=== PATIENT | male | born 1930 | race Caucasian/White ===

== ENCOUNTER 2019-01-31 19:22 | Emergency (ER) | payer MEDICARE, OTHER ==
[~2019-01-31] VITALS: Ht 177.8 cm; Wt 81.7 kg
[~2019-01-31 19:22] MED LIST: AMLO10 PO; AMLO5; AMOX875 PO; Amoxicillin500 MG PO; BENADRYL25 MG PO; BUPR150ER PO; CARV6.25 PO; CEFD300 PO; CEPH500 PO; CHOL10002 PO; Cipro500 MG PO; DONE10 PO; FERR325 PO; FINA5 PO; FLUC150A PO; Istalol2.5 ML BOTHEYES; LORA1 PO; LOSA50 PO; LOSARTAN POTAS100 MG PO; ROSU10TA PO; TRAV.004OP BOTHEYES; Travatan Z5 ML BOTHEYES; XARELTO20 MG PO; ZIPR20 PO
[2019-01-31 19:52] LABS: BASOPHILS ABSOLUTE AUTO 0.05 K/mm3 (0.00-0.23); BASOPHILS PERCENT AUTO 1 % (0-2); EOSINOPHILS ABSOLUTE AUTO 0.09 K/mm3 (0.00-0.68); EOSINOPHILS PERCENT AUTO 1 % (0-6); Hematocrit 47.7 % (37.0-53.0); Hemoglobin 15.8 g/dL (13.5-17.5); IMMATURE GRAN ABSOLUTE AUTO 0.02 K/mm3 (0.00-0.10); IMMATURE GRAN PERCENT AUTO 0 % (0-1); LYMPHOCYTES ABSOLUTE AUTO 1.69 K/mm3 (0.84-5.20); LYMPHOCYTES PERCENT AUTO 24 % (21-46); MONOCYTES ABSOLUTE AUTO 0.39 K/mm3 (0.16-1.47); MONOCYTES PERCENT AUTO 6 % (4-13); Mean Corpuscular HGB 32.8 pg (26.0-34.0); Mean Corpuscular HGB Conc 33.1 g/dL (31.5-36.5); Mean Corpuscular Volume 99 fL (80-100); NEUTROPHILS ABSOLUTE AUTO 4.74 K/mm3 (1.96-9.15); NEUTROPHILS PERCENT AUTO 68 % (41-73); Platelet Count 121 K/mm3 (150-400); RDW Coefficient Variation 12.2 % (11.7-14.2); RDW Standard Deviation 44.6 fL (35.1-46.3); Red Blood Cell Count 4.82 M/mm3 (4.30-5.90); White Blood Cell Count 6.98 K/mm3 (4.00-11.30)
[2019-01-31 20:08] LABS: Alanine Aminotransfer (ALT/SGP 17 U/L (12-78); Albumin/Globulin Ratio 1.4 (0.8-1.8); Alk Phos 109 U/L (50-136); Anion Gap 5 mmol/L (6-16); Aspartate Aminotrans (AST/SGOT 17 U/L (12-37); Blood Urea Nitrogen 20 mg/dL (8-24); Bun/Creatinine Ratio 15.9 (12.0-20.0); CO2, Blood 26 mmol/L (21-32); Calcium, Blood 9.3 mg/dL (8.5-10.1); Chloride, Blood 110 mmol/L (98-108); Creatinine, Blood 1.26 mg/dL (0.60-1.20); Ethanol (Alcohol), Blood, Med <3 mg/dL; Globulin, Blood 2.8 g/dL (2.2-4.0); Glomerular Filtration Rate 57 (60-); Glucose, Blood 95 mg/dL (70-99); Sodium, Blood 141 mmol/L (136-145); Total Protein, Blood 6.8 g/dL (6.4-8.2)
[2019-01-31 20:13] LABS: Source, Urine Clean Catch
[2019-01-31 20:21] LABS: Bilirubin, Urine Neg (Neg); Blood, Urine 1+ (Neg); Glucose Qualitative, Urine Neg (Neg); Ketones, Urine 1+ (Neg); Leukocyte Esterase, Urine 1+ (Neg); Nitrite, Urine Neg (Neg); Protein, Urine 1+ (Neg); Urobilinogen, Urine 2+ (Normal); pH, Urine 6.5 (5.0-8.0)
[2019-01-31 20:28] LABS: Appearance, Urine Hazy (Clear); Bacteria Many /hpf; Color, Urine Yellow (P-Yellow); Red Blood Cells, Urine 0-2 /hpf (0-2); Squamous Epithelial Cells Few /hpf (Few); White Blood Cells, Urine 25-50 /hpf (0-5)
[2019-01-31] MEDS ORDERED: CEFP200 PO (20:38)
[2019-01-31] MEDS ORDERED: LOSA50 PO (20:38)
== END 2019-01-31 21:02 | disposition home or self-care (01) ==
LOC: ER 19:22
PROVIDERS: Emergency Medicine
DX: N39.0 Urinary tract infection, site not specified (principal); I10 Essential (primary) hypertension; Z86.73 Personal history of transient ischemic attack (TIA), and cerebral infarction without residual deficits; I48.91 Unspecified atrial fibrillation; F03.90 Unspecified dementia, unspecified severity, without behavioral disturbance, psychotic disturbance, mood disturbance, and anxiety; Z79.899 Other long term (current) drug therapy
CPT/HCPCS: 70450; 71045; 80053; 81001; 85025; 87077; 87086; 87186; 93005; 93010; 99285-25; A9270-GY; G0480

== ENCOUNTER 2019-12-30 14:41 | Emergency (ER) | payer MEDICARE, OTHER ==
[~2019-12-30] VITALS: Ht 177.8 cm; Wt 81.7 kg
[~2019-12-30 14:41] MED LIST changes: +CEFP200 PO
[2019-12-30 15:26] LABS: BASOPHILS ABSOLUTE AUTO 0.04 K/mm3 (0.00-0.23); BASOPHILS PERCENT AUTO 1 % (0-2); EOSINOPHILS ABSOLUTE AUTO 0.14 K/mm3 (0.00-0.68); EOSINOPHILS PERCENT AUTO 2 % (0-6); Hematocrit 48.6 % (37.0-53.0); Hemoglobin 15.8 g/dL (13.5-17.5); IMMATURE GRAN ABSOLUTE AUTO 0.01 K/mm3 (0.00-0.10); IMMATURE GRAN PERCENT AUTO 0 % (0-1); LYMPHOCYTES ABSOLUTE AUTO 1.49 K/mm3 (0.84-5.20); LYMPHOCYTES PERCENT AUTO 26 % (21-46); MONOCYTES ABSOLUTE AUTO 0.42 K/mm3 (0.16-1.47); MONOCYTES PERCENT AUTO 7 % (4-13); Mean Corpuscular HGB 31.7 pg (26.0-34.0); Mean Corpuscular HGB Conc 32.5 g/dL (31.5-36.5); Mean Corpuscular Volume 98 fL (80-100); Mean Platelet Volume 11.9 fL (9.1-12.4); NEUTROPHILS ABSOLUTE AUTO 3.74 K/mm3 (1.96-9.15); NEUTROPHILS PERCENT AUTO 64 % (41-73); Platelet Count 119 K/mm3 (150-400); RDW Coefficient Variation 12.6 % (11.7-14.2); RDW Standard Deviation 45.4 fL (35.1-46.3); Red Blood Cell Count 4.98 M/mm3 (4.30-5.90); White Blood Cell Count 5.84 K/mm3 (4.00-11.30)
[2019-12-30 15:49] LABS: Alanine Aminotransfer (ALT/SGP 19 U/L (12-78); Albumin, Blood 3.6 g/dL (3.4-5.0); Albumin/Globulin Ratio 1.2 (0.8-1.8); Alk Phos 96 U/L (50-136); Anion Gap 6 mmol/L (6-16); Aspartate Aminotrans (AST/SGOT 21 U/L (12-37); Bilirubin, Total 0.9 mg/dL (0.1-1.0); Blood Urea Nitrogen 28 mg/dL (8-24); Bun/Creatinine Ratio 20.3 (12.0-20.0); CO2, Blood 25 mmol/L (21-32); Calcium, Blood 8.8 mg/dL (8.5-10.1); Chloride, Blood 113 mmol/L (98-108); Creatinine, Blood 1.38 mg/dL (0.60-1.20); Globulin, Blood 3.1 g/dL (2.2-4.0); Glomerular Filtration Rate 52 (60-); Glucose, Blood 108 mg/dL (70-99); Potassium, Blood 4.5 mmol/L (3.5-5.5); Sodium, Blood 144 mmol/L (136-145); Total Protein, Blood 6.7 g/dL (6.4-8.2); Troponin I <0.015 ng/mL (0.000-0.040)
== END 2019-12-30 16:29 | disposition home or self-care (01) ==
LOC: ER 14:41
PROVIDERS: Physician Assistant
DX: R07.9 Chest pain, unspecified (principal); F03.90 Unspecified dementia, unspecified severity, without behavioral disturbance, psychotic disturbance, mood disturbance, and anxiety; Z79.2 Long term (current) use of antibiotics; Z79.899 Other long term (current) drug therapy; Z86.73 Personal history of transient ischemic attack (TIA), and cerebral infarction without residual deficits
CPT/HCPCS: 36415; 71045; 80053; 84484; 85025; 93005; 93010; 99285-25

== ENCOUNTER 2020-06-11 19:11 | Observation (INO) | payer MEDICARE, OTHER ==
[~2020-06-11] VITALS: Ht 177.8 cm; Wt 81.7 kg
[2020-06-11 20:12] LABS: BASOPHILS ABSOLUTE AUTO 0.04 K/mm3 (0.00-0.23); BASOPHILS PERCENT AUTO 1 % (0-2); EOSINOPHILS ABSOLUTE AUTO 0.21 K/mm3 (0.00-0.68); EOSINOPHILS PERCENT AUTO 3 % (0-6); Hematocrit 48.4 % (37.0-53.0); Hemoglobin 15.6 g/dL (13.5-17.5); IMMATURE GRAN ABSOLUTE AUTO 0.01 K/mm3 (0.00-0.10); IMMATURE GRAN PERCENT AUTO 0 % (0-1); LYMPHOCYTES ABSOLUTE AUTO 1.79 K/mm3 (0.84-5.20); LYMPHOCYTES PERCENT AUTO 29 % (21-46); MONOCYTES ABSOLUTE AUTO 0.48 K/mm3 (0.16-1.47); MONOCYTES PERCENT AUTO 8 % (4-13); Mean Corpuscular HGB 31.7 pg (26.0-34.0); Mean Corpuscular HGB Conc 32.2 g/dL (31.5-36.5); Mean Corpuscular Volume 98 fL (80-100); Mean Platelet Volume 11.1 fL (9.1-12.4); NEUTROPHILS ABSOLUTE AUTO 3.58 K/mm3 (1.96-9.15); NEUTROPHILS PERCENT AUTO 59 % (41-73); Platelet Count 132 K/mm3 (150-400); RDW Coefficient Variation 12.5 % (11.7-14.2); RDW Standard Deviation 45.6 fL (35.1-46.3); Red Blood Cell Count 4.92 M/mm3 (4.30-5.90); White Blood Cell Count 6.11 K/mm3 (4.00-11.30)
[2020-06-11 20:26] LABS: Troponin I <0.015 ng/mL (0.000-0.040)
[2020-06-11 20:35] LABS: Alanine Aminotransfer (ALT/SGP 15 U/L (12-78); Albumin, Blood 3.6 g/dL (3.4-5.0); Albumin/Globulin Ratio 1.2 (0.8-1.8); Alk Phos 115 U/L (50-136); Anion Gap 3 mmol/L (6-16); Aspartate Aminotrans (AST/SGOT 14 U/L (12-37); Bilirubin, Total 0.5 mg/dL (0.1-1.0); Blood Urea Nitrogen 27 mg/dL (8-24); Bun/Creatinine Ratio 22.3 (12.0-20.0); CO2, Blood 31 mmol/L (21-32); Calcium, Blood 8.7 mg/dL (8.5-10.1); Chloride, Blood 116 mmol/L (98-108); Creatinine, Blood 1.21 mg/dL (0.60-1.20); Globulin, Blood 2.9 g/dL (2.2-4.0); Glomerular Filtration Rate 60 (60-); Glucose, Blood 92 mg/dL (70-99); Potassium, Blood 4.4 mmol/L (3.5-5.5); Sodium, Blood 150 mmol/L (136-145); Total Protein, Blood 6.5 g/dL (6.4-8.2)
--- NOTE | 2020-06-12 02:13 | NUR ---
PT STATUS PT URINATED IN URINAL AT BEDSIDE. AMBREEN HEMATURIA NOTED. PT STATES IT HAPPENS TO HIM SOMETIMES. NOTE - HX OF TURP, FREQUENT UTI'S
--- NOTE | 2020-06-12 04:04 | NUR ---
PROVIDER NOTIFIED PROVIDER NOTIFIED OF BRIGHT RED BLOOD FOLLOWING URINATION AND HE WANTS US TO CONTINUE TO MONITOR FOR WORSENING SYMPTOMS.
--- NOTE | 2020-06-12 04:23 | NUR ---
BOX STAPLER SUMMARY PT WAS RECIEVED FROM ER NURSE JUST AFTER 0030, PT WAS ABLE TO AMBULATE W ASSISTANCE FROM ER BED TO MEDICAL BED WITHOUT ANY SOB. PT HAS DENIED ANY CHEST PAIN DURING THE SHIFT AND HAS HAD O2 SATS >90 ON RM AIR. PT WAS VERY CONFUSED ON ARRIVAL HOWEVER, AFTER BEING REDIRECTED THE PT BECAME MORE ALERT AND REMAINED CALM FOR THE REMAINDER OF THE NIGHT. PT IS RESTING COMFORTABLY IN BED W 1/2 NS RUNNING AT 75ML/HR. WCTM.
[2020-06-12 05:40] LABS: BASOPHILS ABSOLUTE AUTO 0.06 K/mm3 (0.00-0.23); BASOPHILS PERCENT AUTO 1 % (0-2); EOSINOPHILS ABSOLUTE AUTO 0.19 K/mm3 (0.00-0.68); EOSINOPHILS PERCENT AUTO 2 % (0-6); Hematocrit 47.7 % (37.0-53.0); Hemoglobin 15.6 g/dL (13.5-17.5); IMMATURE GRAN ABSOLUTE AUTO 0.02 K/mm3 (0.00-0.10); IMMATURE GRAN PERCENT AUTO 0 % (0-1); LYMPHOCYTES ABSOLUTE AUTO 2.18 K/mm3 (0.84-5.20); LYMPHOCYTES PERCENT AUTO 26 % (21-46); MONOCYTES ABSOLUTE AUTO 0.57 K/mm3 (0.16-1.47); MONOCYTES PERCENT AUTO 7 % (4-13); Mean Corpuscular HGB 31.7 pg (26.0-34.0); Mean Corpuscular HGB Conc 32.7 g/dL (31.5-36.5); Mean Corpuscular Volume 97 fL (80-100); Mean Platelet Volume 11.4 fL (9.1-12.4); NEUTROPHILS ABSOLUTE AUTO 5.37 K/mm3 (1.96-9.15); NEUTROPHILS PERCENT AUTO 64 % (41-73); Platelet Count 128 K/mm3 (150-400); RDW Coefficient Variation 12.3 % (11.7-14.2); RDW Standard Deviation 44.3 fL (35.1-46.3); Red Blood Cell Count 4.92 M/mm3 (4.30-5.90); White Blood Cell Count 8.39 K/mm3 (4.00-11.30)
[2020-06-12 06:09] LABS: Alanine Aminotransfer (ALT/SGP 18 U/L (12-78); Albumin, Blood 3.4 g/dL (3.4-5.0); Albumin/Globulin Ratio 1.2 (0.8-1.8); Alk Phos 98 U/L (50-136); Anion Gap 3 mmol/L (6-16); Aspartate Aminotrans (AST/SGOT 12 U/L (12-37); Bilirubin, Total 0.7 mg/dL (0.1-1.0); Blood Urea Nitrogen 23 mg/dL (8-24); Bun/Creatinine Ratio 21.5 (12.0-20.0); CO2, Blood 29 mmol/L (21-32); CPK Creatine Kinase 53 U/L (39-308); Calcium, Blood 8.7 mg/dL (8.5-10.1); Chloride, Blood 116 mmol/L (98-108); Creatinine, Blood 1.07 mg/dL (0.60-1.20); Globulin, Blood 2.8 g/dL (2.2-4.0); Glomerular Filtration Rate >60 (60-); Glucose, Blood 90 mg/dL (70-99); Potassium, Blood 4.2 mmol/L (3.5-5.5); Sodium, Blood 148 mmol/L (136-145); Total Protein, Blood 6.2 g/dL (6.4-8.2); Troponin I <0.015 ng/mL (0.000-0.040)
[2020-06-12 13:55] LABS: CPK Creatine Kinase 52 U/L (39-308); Troponin I <0.015 ng/mL (0.000-0.040)
--- NOTE | 2020-06-12 16:47 | NUR ---
1608 PT DISCHARGED HOME VIA PERSONAL VEHICLE ACCOMPANIED AND DRIVEN BY . ESCORTED TO ENTRANCE VIA W/C BY HIM TECH. IV REMOVED. D/C INSTRUCTIONS REVIEWED WITH PT AND COPY PROVIDED. FOLLOW UP APT MADE WITH DR. REYNOSO'S OFFICE. PT DENIED PAIN DURING SHIFT. NO HEMATURIA OBSERVED, WAS REPORTED FROM NOC SHIFT, URINE CLEAR/YELLOW. NO NEW CHANGES OR CONCERNS.
== END 2020-06-12 16:08 | disposition home or self-care (01) ==
LOC: ER 19:11 → MEDS 19:12
PROVIDERS: Emergency Medicine; ADMIT Internal Medicine
DX: R07.9 Chest pain, unspecified (principal); G30.9 Alzheimer's disease, unspecified; F02.80 Dementia in other diseases classified elsewhere, unspecified severity, without behavioral disturbance, psychotic disturbance, mood disturbance, and anxiety; I48.0 Paroxysmal atrial fibrillation; I10 Essential (primary) hypertension; Z86.73 Personal history of transient ischemic attack (TIA), and cerebral infarction without residual deficits; Z79.899 Other long term (current) drug therapy; Z66 Do not resuscitate
CPT/HCPCS: 36415; 71046; 80053; 82550; 83880; 84484; 85025; 93005; 93010; 99285-25; G0378

== ENCOUNTER 2020-08-29 10:37 | Emergency (ER) | payer MEDICARE, OTHER ==
[~2020-08-29] VITALS: Ht 175.3 cm; Wt 71.7 kg
[2020-08-29 11:02] LABS: BASOPHILS ABSOLUTE AUTO 0.06 K/mm3 (0.00-0.23); BASOPHILS PERCENT AUTO 1 % (0-2); EOSINOPHILS PERCENT AUTO 3 % (0-6); Hematocrit 50.3 % (37.0-53.0); Hemoglobin 16.6 g/dL (13.5-17.5); IMMATURE GRAN ABSOLUTE AUTO 0.02 K/mm3 (0.00-0.10); IMMATURE GRAN PERCENT AUTO 0 % (0-1); LYMPHOCYTES ABSOLUTE AUTO 2.24 K/mm3 (0.84-5.20); LYMPHOCYTES PERCENT AUTO 36 % (21-46); MONOCYTES PERCENT AUTO 6 % (4-13); Mean Corpuscular HGB 32.7 pg (26.0-34.0); Mean Corpuscular Volume 99 fL (80-100); Mean Platelet Volume 11.7 fL (9.1-12.4); NEUTROPHILS ABSOLUTE AUTO 3.31 K/mm3 (1.96-9.15); NEUTROPHILS PERCENT AUTO 53 % (41-73); Platelet Count 144 K/mm3 (150-400); RDW Coefficient Variation 12.8 % (11.7-14.2); RDW Standard Deviation 47.3 fL (35.1-46.3); Red Blood Cell Count 5.08 M/mm3 (4.30-5.90); White Blood Cell Count 6.23 K/mm3 (4.00-11.30)
[2020-08-29 11:16] LABS: Prothrombin Time Results 10.7 Sec (9.7-11.5)
[2020-08-29 11:26] LABS: Alanine Aminotransfer (ALT/SGP 20 U/L (12-78); Albumin, Blood 3.6 g/dL (3.4-5.0); Albumin/Globulin Ratio 1.1 (0.8-1.8); Alk Phos 112 U/L (50-136); Anion Gap 5 mmol/L (6-16); Aspartate Aminotrans (AST/SGOT 15 U/L (12-37); Bilirubin, Total 1.2 mg/dL (0.1-1.0); Blood Urea Nitrogen 22 mg/dL (8-24); Bun/Creatinine Ratio 19.3 (12.0-20.0); CO2, Blood 26 mmol/L (21-32); Calcium, Blood 8.9 mg/dL (8.5-10.1); Chloride, Blood 115 mmol/L (98-108); Creatinine, Blood 1.14 mg/dL (0.60-1.20); Globulin, Blood 3.2 g/dL (2.2-4.0); Glomerular Filtration Rate >60 (60-); Glucose, Blood 100 mg/dL (70-99); Potassium, Blood 4.3 mmol/L (3.5-5.5); Sodium, Blood 146 mmol/L (136-145); Total Protein, Blood 6.8 g/dL (6.4-8.2)
--- NOTE | 2020-08-29 13:09 | NUR ---
ED Palliative Care Consult Spoke with Dr Loyola and discussed case. Pt to ED for possible stroke. Pt has Alheimer's Disease, history of AFIB, PVD, and CVA. Pt is non compliant with medications. Pt resting on gurney upon arrival. Spouse Shirley present during visit. Pt is A&OX2/3. Pt denies pain and dyspnea at this time. Pt appears mildly anxious as evidenced by constant movement of lower extremities. Pt reports feeling better and is wanting to go home. Engaged in therapeutic discussion regarding advanced care planning. Shirley reports being Pt's soul caregiver and is currently managing his needs. Shirley reports plan to move into their son's home once home in [place] is sold. Son currently down in [place] preparing home to be sold. Shirley reports Pt is able to ambulate with walker but does have a shuffling gait. No history of falls. Pt does require assistance with bathing, dressing, and experiences incontinence of bowel and bladder. Pt still has good appetite and has been able to maintain weight. Shirley reports Pt has been non compliant with medications and states she does not want to force him to take medications. She states this just causes agitation and "there is no reason for him to be miserable". Educated on disease process including trajectory of disease. Discussed the importance of planning for the future as disease process takes its coarse. Discussed the potential of needing to consider caregiver support or higher level of care as disease progresses. Discussed hospice being an option at some point during disease process. Discussed considering completing POLST. Educated on life sustaining measures including risk factors. Provided POLST and spouse will discuss further with Pt's PCP. Offered therapeutic listening as Shirley reports biggest concern at this time getting someone hired to assist with cleaning the house and does not know who to call or trust. Spouse appears agreeable to take Pt back home. Pt keeps repeating wanting to go home. No other concerns reported at this time. Spoke with Scanning Supervisor Violette and discussed case. Violette will provide list of community resources. Spoke with ED RN Hayes and discussed case. Palliative Care will remain available.
[2020-08-29] MEDS ORDERED: ATOR20 PO (20:23)
[2020-08-29] MEDS ORDERED: Aspirin EC81 MG PO (20:23)
== END 2020-08-29 13:36 | disposition home or self-care (01) ==
LOC: ER 10:37
PROVIDERS: Emergency Medicine
DX: I63.9 Cerebral infarction, unspecified (principal); G81.94 Hemiplegia, unspecified affecting left nondominant side; R47.81 Slurred speech; I48.91 Unspecified atrial fibrillation; R41.82 Altered mental status, unspecified; I10 Essential (primary) hypertension; Z86.73 Personal history of transient ischemic attack (TIA), and cerebral infarction without residual deficits; Z95.0 Presence of cardiac pacemaker
CPT/HCPCS: 36415; 70450; 71045; 73130; 80053; 85025; 85610; 85730; 93005; 93010; 99283-25; 99285-25

== ENCOUNTER 2020-08-29 16:06 | Emergency (ER) | payer MEDICARE, OTHER ==
[~2020-08-29] VITALS: Ht 182.9 cm; Wt 81.7 kg
[2020-08-29] MEDS ORDERED: ATOR20 PO (20:23)
[2020-08-29] MEDS ORDERED: Aspirin EC81 MG PO (20:23)
== END 2020-08-29 20:40 | disposition home or self-care (01) ==
LOC: ER 16:06
DX: S61.213A Laceration without foreign body of left middle finger without damage to nail, initial encounter (principal); S60.212A Contusion of left wrist, initial encounter; S60.042A Contusion of left ring finger without damage to nail, initial encounter; I48.91 Unspecified atrial fibrillation; I10 Essential (primary) hypertension; Z86.73 Personal history of transient ischemic attack (TIA), and cerebral infarction without residual deficits; Z95.0 Presence of cardiac pacemaker; W18.30XA Fall on same level, unspecified, initial encounter
CPT/HCPCS: 73130; 99283-25

== ENCOUNTER 2020-09-01 11:35 | Emergency (ER) | payer MEDICARE, OTHER ==
[~2020-09-01] VITALS: Ht 180.3 cm; Wt 90.7 kg
[~2020-09-01 11:35] MED LIST changes: +ATOR20 PO; +Aspirin EC81 MG PO
== END 2020-09-01 12:57 | disposition home or self-care (01) ==
LOC: ER 11:35
DX: S61.213A Laceration without foreign body of left middle finger without damage to nail, initial encounter (principal); S60.212A Contusion of left wrist, initial encounter; S60.042A Contusion of left ring finger without damage to nail, initial encounter; I48.91 Unspecified atrial fibrillation; I10 Essential (primary) hypertension; Z86.73 Personal history of transient ischemic attack (TIA), and cerebral infarction without residual deficits; Z95.0 Presence of cardiac pacemaker; W18.30XA Fall on same level, unspecified, initial encounter
CPT/HCPCS: 36415; 93005; 93010; 99285-25; A9270

== ENCOUNTER 2020-09-10 16:32 | Emergency (ER) | payer MEDICARE, OTHER ==
[~2020-09-10] VITALS: Ht 180.3 cm; Wt 61.2 kg
== END 2020-09-10 17:50 | disposition home or self-care (01) ==
LOC: ER 16:32
DX: R29.810 Facial weakness (principal); F03.90 Unspecified dementia, unspecified severity, without behavioral disturbance, psychotic disturbance, mood disturbance, and anxiety; Z86.73 Personal history of transient ischemic attack (TIA), and cerebral infarction without residual deficits; Z79.82 Long term (current) use of aspirin
CPT/HCPCS: 99284

== ENCOUNTER 2021-01-06 17:19 | Inpatient (IN) | payer MEDICARE, OTHER ==
[~2021-01-06] VITALS: Ht 177.8 cm; Wt 83.6 kg
[2021-01-06 18:25] LABS: BASOPHILS ABSOLUTE AUTO 0.05 K/mm3 (0.00-0.23); BASOPHILS PERCENT AUTO 1 % (0-2); EOSINOPHILS ABSOLUTE AUTO 0.15 K/mm3 (0.00-0.68); EOSINOPHILS PERCENT AUTO 2 % (0-6); Hematocrit 49.1 % (37.0-53.0); Hemoglobin 16.2 g/dL (13.5-17.5); IMMATURE GRAN ABSOLUTE AUTO 0.02 K/mm3 (0.00-0.10); IMMATURE GRAN PERCENT AUTO 0 % (0-1); LYMPHOCYTES PERCENT AUTO 41 % (21-46); MONOCYTES PERCENT AUTO 6 % (4-13); Mean Corpuscular Volume 97 fL (80-100); NEUTROPHILS ABSOLUTE AUTO 5.04 K/mm3 (1.96-9.15); NEUTROPHILS PERCENT AUTO 51 % (41-73); Platelet Count 179 K/mm3 (150-400); RDW Coefficient Variation 13.2 % (11.7-14.2); RDW Standard Deviation 47.7 fL (35.1-46.3); Red Blood Cell Count 5.06 M/mm3 (4.30-5.90); White Blood Cell Count 9.96 K/mm3 (4.00-11.30)
[2021-01-06 18:39] LABS: Alanine Aminotransfer (ALT/SGP 27 U/L (12-78); Albumin, Blood 3.8 g/dL (3.4-5.0); Alk Phos 116 U/L (50-136); Anion Gap 14 mmol/L (6-16); Aspartate Aminotrans (AST/SGOT 38 U/L (12-37); Bilirubin, Total 0.8 mg/dL (0.1-1.0); Blood Urea Nitrogen 26 mg/dL (8-24); Bun/Creatinine Ratio 23.9 (12.0-20.0); CO2, Blood 20 mmol/L (21-32); Calcium, Blood 9.3 mg/dL (8.5-10.1); Chloride, Blood 111 mmol/L (98-108); Creatinine, Blood 1.09 mg/dL (0.60-1.20); Globulin, Blood 3.8 g/dL (2.2-4.0); Glomerular Filtration Rate >60 (60-); Glucose, Blood 135 mg/dL (70-99); Magnesium, Blood 2.3 mg/dL (1.6-2.4); Potassium, Blood 4.6 mmol/L (3.5-5.5); Sodium, Blood 145 mmol/L (136-145); Total Protein, Blood 7.6 g/dL (6.4-8.2)
[2021-01-06 18:40] LABS: International Normalized Ratio 1.01; Prothrombin Time Results 10.9 Sec (9.7-11.5)
[2021-01-06 19:03] LABS: PO2 Arterial 111 mmHg (80-100)
[2021-01-06 19:49] LABS: Source, Urine Catheter
[2021-01-06 20:00] LABS: Appearance, Urine Clear (Clear); Bilirubin, Urine Neg (Neg); Blood, Urine 2+ (Neg); Color, Urine Yellow (P-Yellow); Glucose Qualitative, Urine 1+ (Neg); Ketones, Urine Neg (Neg); Leukocyte Esterase, Urine 1+ (Neg); Nitrite, Urine Neg (Neg); Protein, Urine 3+ (Neg); Specific Gravity, Urine 1.015 (1.003-1.022); Urobilinogen, Urine NORM (Normal); pH, Urine 6.5 (5.0-8.0)
[2021-01-06 20:06] LABS: Squamous Epithelial Cells Few /hpf (Few)
[2021-01-06 20:07] LABS: Amorphous Light (0-Heavy); Bacteria Mod /hpf
[2021-01-06 20:11] LABS: U Amphetamine Screen Not Detected; U Barbituate Screen Not Detected; U Benzodiazapine Screen Not Detected; U Buprenorphine Screen Not Detected; U Cannabinoids Screen DETECTED; U Cocaine Screen Not Detected; U Methadone Screen Not Detected; U Methamphetamine Screen Not Detected; U Opiates Screen Not Detected; U Oxycodone Screen Not Detected; U Phencyclidine Screen Not Detected; U Propoxyphene Screen Not Detected
--- NOTE | 2021-01-06 22:48 | NUR ---
ASSUMED PT CARE FROM ER AT 2109 PT INTUBATED AND SEDATED. FENTANYL GTT AT 40MCG/HR AND VERSED GTT AT 5MG/HR; HOWEVER, PT ARRIVED GRIMACING AND WITHDRAWALING FROM NOXIOUS STIMULI, BP ELEVATED WITH SBP 190'S AND HR 110-120'S; AFIB. THEREFORE, INCREASED FENTANYL GTT TO 100MCG/HR AND VERSED TO 7MG/HR; HOWEVER, PT STILL GRIMACING AND WITHDRAWALING TO PAINFUL STIMULI; THEREFORE, INCREASED FENTANYL GTT TO 150MCG/HR WITH GOOD RESULTS. PT DOES NOT FOLLOW ANY COMMANDS, NOR DOES HE OPEN HIS EYES. GROSS MOTOR MOVEMENT TO LUE AND TO RIGHT HAND. NO MOVEMENT NOTED TO BLE'S. PER , PT HAD RIGHT SIDED WEAKNESS AND FACIAL DROOP AFTER PREVIOUS STROKES. RIGHT PUPIL IS 2MM, BUT NONREACTIVE. LEFT PUPIL 2MM AND SLUGGISH. ETT 8.0 AND 27CM AT THE LIP. OG IS CLAMPED; PLACEMENT IS GOOD WITH NO RESIDUALS NOTED. HYPOACTIVE BT X4. RUIZ CATH IS PATENT AND DRAINING BERTO COLORED URINE TO GRAVITY. BILATERAL SOFT WRIST RESTRAINTS IN PLACE AT THIS TIME. TO BEDSIDE TO COLLECT H&P. CONFIRMED CODE STATUS WITH WHOM STATED SHE NEEDED TO CHECK WITH SON. SON STATES "DO EVERYTHING POSSIBLE." VERIFIED HOSPICE STATUS IN WHICH SON STATES HE CAME OFF HOSPICE 3 WEEKS AGO BECAUSE HE WAS DOING BETTER. AND PT LIVE WITH SON WHO HELPS TAKE CARE OF THEM BOTH. LEFT FOR THE NIGHT; SENT HOME WITH [employer] CARD FOR HER TO CONTACT REGARDING UPDATES. DR. TORRES TO BEDSIDE TO EVALUATE PT. WILL CONTINUE TO MONITOR.
[2021-01-07 03:38] LABS: BASOPHILS ABSOLUTE AUTO 0.04 K/mm3 (0.00-0.23); BASOPHILS PERCENT AUTO 0 % (0-2); EOSINOPHILS ABSOLUTE AUTO 0.11 K/mm3 (0.00-0.68); EOSINOPHILS PERCENT AUTO 1 % (0-6); Hematocrit 49.1 % (37.0-53.0); Hemoglobin 16.4 g/dL (13.5-17.5); IMMATURE GRAN ABSOLUTE AUTO 0.04 K/mm3 (0.00-0.10); IMMATURE GRAN PERCENT AUTO 0 % (0-1); LYMPHOCYTES ABSOLUTE AUTO 2.43 K/mm3 (0.84-5.20); LYMPHOCYTES PERCENT AUTO 20 % (21-46); MONOCYTES ABSOLUTE AUTO 1.32 K/mm3 (0.16-1.47); MONOCYTES PERCENT AUTO 11 % (4-13); Mean Corpuscular HGB Conc 33.4 g/dL (31.5-36.5); Mean Corpuscular Volume 96 fL (80-100); Mean Platelet Volume 11.4 fL (9.1-12.4); NEUTROPHILS PERCENT AUTO 67 % (41-73); Platelet Count 117 K/mm3 (150-400); RDW Coefficient Variation 13.2 % (11.7-14.2); Red Blood Cell Count 5.13 M/mm3 (4.30-5.90); White Blood Cell Count 12.04 K/mm3 (4.00-11.30)
[2021-01-07 03:58] LABS: Alanine Aminotransfer (ALT/SGP 23 U/L (12-78); Albumin, Blood 3.5 g/dL (3.4-5.0); Albumin/Globulin Ratio 1.1 (0.8-1.8); Alk Phos 101 U/L (50-136); Anion Gap 12 mmol/L (6-16); Aspartate Aminotrans (AST/SGOT 22 U/L (12-37); Bilirubin, Total 1.2 mg/dL (0.1-1.0); Blood Urea Nitrogen 24 mg/dL (8-24); Bun/Creatinine Ratio 24.6 (12.0-20.0); CO2, Blood 20 mmol/L (21-32); Calcium, Blood 8.6 mg/dL (8.5-10.1); Chloride, Blood 112 mmol/L (98-108); Creatinine, Blood 0.98 mg/dL (0.60-1.20); Globulin, Blood 3.2 g/dL (2.2-4.0); Glomerular Filtration Rate >60 (60-); Glucose, Blood 75 mg/dL (70-99); Potassium, Blood 3.7 mmol/L (3.5-5.5); Sodium, Blood 144 mmol/L (136-145); Total Protein, Blood 6.7 g/dL (6.4-8.2)
--- NOTE | 2021-01-07 05:53 | NUR ---
END OF SHIFT SUMMARY. NO SIGNIFICANT CHANGES SINCE LAST ENTRY. PT REMAINS INTUBATED AND SEDATED. VENT AC 16, VT 450, PEEP 5, FIO2 35%, RR 16, SPO2 >95%. FENTANYL GTT AT 100MCG/HR AND VERSED AT 4MG/HR. PT STILL ABLE TO WITHDRAWAL FROM NOXIOUS STIMULI. GROSSLY MOVES ALL EXTREMITIES; RIGHT SIDE WEAKER THAN LEFT. NO EYE OPENING NOTED AND DOES NOT FOLLOW COMMANDS. NO SEIZURE LIKE ACTIVITY THIS SHIFT. VSS, SEE FLOWSHEET. WILL CONTINUE TO MONITOR UNTIL REPORT IS HANDED OFF TO ONCOMING RN.
--- NOTE | 2021-01-07 07:50 | NUR ---
ASSUMED CARE / SEDATION VACATION / DR JARRELL: REPORT RECEIVED FROM RUPA Lamb RN. ASSUMED CARE OF THIS PT AT APPROX 0700. ON ASSESSMENT, THE PT HAS FENTANYL & VERSED ON STANDBY FOR EEG/ SEDATION VACATION. HE IS RESTLESS, R SIDE NOTED TO BE MOVING LESS THAN L. HE IS NOT FOLLOWING DIRECTIONS. EYES OPEN SLIGHTLY BUT NOT TRACKING. LS ARE CLEAR T/O, VENT SETTINGS: AC 16/450/5/35%, O2 SATS > 92%. MONITOR SHOWS AFIB W/ HR 80s, OCCASIONAL PACED BEATS, BP STABLE. OGT CLAMPED, GREEN BILE OUTPUT NOTED IN TUBE. TEMP RUIZ PATENT/ DRAINING. SKIN OVERALL ECCHYMOTIC, FRAGILE. DR JARRELL AT BEDSIDE. UPDATED ON PT CONDITION & CIRCUMSTANCES REGARDING CHANGED CODE STATUS FROM DNR/ HOSPICE TO FULL CODE THIS ADMISSION. PALLIATIVE CARE INVOLVED. NO CHANGES AT THIS TIME. WILL CONTINUE TO MONITOR & UPDATE NEEDED.
--- NOTE | 2021-01-07 10:30 | NUR ---
DR ZUÑIGA: PROVIDER AT BEDSIDE TO EVAL PT. SHE PLANS TO ORDER PROPOFOL FOR SEDATION & D/C BOTH FENTANYL & VERSED DRIPS. THERE ARE NO PLANS TO EXTUBATE TODAY & ORDERS HAVE BEEN PLACED FOR WARDROBE SPECIALIST CONSULT REGARDING INITIATING TUBE FEEDS.
--- NOTE | 2021-01-07 12:15 | NUR ---
TUBE FEEDS: TF OF PIVOT 1.5 INITIATED PER ORDERS AT APPROX 1215. INITIAL RATE IS 25 ML/HR & CAN BE INCREASED TO 35 ML/HR IF PT TOLERATING WELL AT APPROX 2015 TONIGHT. PUMP SET TO ALARM AT THAT TIME. 30 ML H2O FLUSH Q4H FOR TUBE PATENCY.
--- NOTE | 2021-01-07 15:42 | NUR ---
UPDATE: DR ZUÑIGA NOTIFIED FOR PT's POOR URINE OUTPUT OF APPROX 250 MLS THIS SHIFT. 1L BOLUS OF NS ORDERED & ADMIN PER EMAR. WILL UPDATE PROVIDER ON STATUS OF URINE OUTPUT ONCE BOLUS COMPLETE.
--- NOTE | 2021-01-07 16:19 | NUR ---
EARLY VISITOR TOMORROW: THE PT's , AZAEL, HAS MENTIONED THAT THE PT GENERALLY IS LESS AGITATED IN NEW/ UNFAMILIAR PLACES WHEN SHE IS AROUND R/T HX ALZHEIMER's DEMENTIA. SHE HAS REQUESTED TO BE AT BEDSIDE TOMORROW MORNING FOR SBT. THIS HAS BEEN CLEARED W/ WARP KNITTER HELPER, YURIY EARL, & THE PT's PLANS TO BE AT BEDSIDE AT 0930 TOMORROW MORNING.
--- NOTE | 2021-01-07 17:10 | NUR ---
[facility] visit with pt's at the bedside. Per request, I raised question of goals of care and code status. is hesitant, but states she and her would prefer no CPR and no repeat intubation but she states her kids are "furious" with her for suggesting that and want full tx, full code because they are not ready to let their dad go. Pt was on [facility] due to his his CVAs, dementia & decreased, altered LOC upon hospice admission. Pt & moved in with son and DIL and his condition improved to the point that he was released from hospice and was deemed "doing well" under the circumstances. Yest, found Dinh seizing on the floor, was frightened & called 911. Dinh is 89, has underlying condition of a-fib, CVA and TIA hx, severe dementia. Time spent supporting and encouraging further conversation with her kids about what their dad's wishes are and keeping that in the forefront of decision making. I offered to talk with pt's son and kash, who have been a big help to in pt's care. My name and number was given to for kids to call me if they would like to ask additional questions. I assured that we are not discussing d/c of care but just defining if advanced resuscitation efforts are desired or right for Dinh at this time. Pt will have the start of weaning trials in the am and has obtained permission to be here to help calm him as that is occuring in the am. I planned with her to stop in around 1030 am again. expressed appreciation of conversation and visit. I thanked her for her care and advocacy for her . is clearly distressed in feeling like she cannot do what her wants without upsetting her children. She is hopeful that if they speak with someone else about it they will understand and agree with previously stated wishes. If I do not hear from son jadiel, I will call him in the am and address his concerns if he would like. I did inform pt's that per [place] law and our policy which follows [place] law that she is pt's MPOA in the absence of him naming and documenting a different surrogate decision maker. naturally wants all to be in agreement and states she was "overruled by children".
--- NOTE | 2021-01-07 17:22 | NUR ---
SHIFT SUMMARY: NO ACUTE CHANGES SINCE PRIOR UPDATES. PT REMAINS SEDATED W/ PROPOFOL, INCREASED TO 25 MCG/KG/MIN FOR AGITATION. HE IS INTUBATED W/ 8.0 ETT NOTED TO BE 27.0 CM CRISTOBAL. LS CLEAR T/O, VENT SETTINGS: AC 16/450/5/35% W/ O2 SATS > 92%. MONITOR SHOWS AFIB W/ HR 70-90s, BP STABLE. OGT IN PLACE W/ TUBE FEEDS INFUSING AT 25 ML/HR, 30 ML H2O FLUSH Q4H. TEMP RUIZ PATENT/ DRAINING DARK YELLOW URINE. SKIN CONDITION OVERALL FRAGILE & ECCHYMOTIC W/ VARIOUS SMALL SCABS NOTED T/O BODY SURFACE. WILL CONTINUE TO MONITOR & REPORT OFF TO ONCOMING RN.
--- NOTE | 2021-01-07 23:10 | NUR ---
ASSUMED CARE AT 1900 PT LAYING IN BED INTUBATED WITH VENT SETTINGS AC 16, TV 450, PEEP 5, FIO2 30%; SMALL AMOUNT OF YELLOW, THICK SECREATIONS SUCTIONED FROM ETT. PT REACTIVE TO PERSONAL CARE INCLUDING ORAL CARE AND BED BATH; GAG AND COUGH PRESENT; PT WILL "CHEW" ON ETT WHEN MORE ALERT; PROPOFOL INFUSING AT 20MCG/KG/MIN. AFEBRILE. HR 60-80'S; PACER SPIKES NOTED ON MONITOR. SBP 100-120'S. PIVOT INFUSING VIA OG AT 25ML/HR WITH 30ML WATER FLUSHES Q4HR; MINIMAL RESIDUALS NOTED; PIVIOT INCREASED TO 35ML/HR (GOAL) AT 2044. RUIZ PATENT AND DRAINING MINIMAL URINE TO GRAVITY. PRESSURE ULCER TO RIGHT MEDIAL HALLUX OPEN TO AIR; SEE PICTURE IN CHART. SEE SHIFT ASSESSMENT FOR FULL ASSESSMENT.
[2021-01-08 03:30] LABS: BASOPHILS ABSOLUTE AUTO 0.05 K/mm3 (0.00-0.23); BASOPHILS PERCENT AUTO 1 % (0-2); EOSINOPHILS PERCENT AUTO 1 % (0-6); Hematocrit 40.6 % (37.0-53.0); Hemoglobin 13.9 g/dL (13.5-17.5); IMMATURE GRAN ABSOLUTE AUTO 0.02 K/mm3 (0.00-0.10); IMMATURE GRAN PERCENT AUTO 0 % (0-1); LYMPHOCYTES ABSOLUTE AUTO 1.85 K/mm3 (0.84-5.20); LYMPHOCYTES PERCENT AUTO 21 % (21-46); MONOCYTES ABSOLUTE AUTO 1.02 K/mm3 (0.16-1.47); MONOCYTES PERCENT AUTO 12 % (4-13); Mean Corpuscular HGB 32.4 pg (26.0-34.0); Mean Corpuscular HGB Conc 34.2 g/dL (31.5-36.5); Mean Corpuscular Volume 95 fL (80-100); Mean Platelet Volume 11.8 fL (9.1-12.4); NEUTROPHILS PERCENT AUTO 65 % (41-73); Platelet Count 119 K/mm3 (150-400); RDW Coefficient Variation 13.4 % (11.7-14.2); RDW Standard Deviation 47.2 fL (35.1-46.3); Red Blood Cell Count 4.29 M/mm3 (4.30-5.90); White Blood Cell Count 8.74 K/mm3 (4.00-11.30)
[2021-01-08 03:43] LABS: Anion Gap 6 mmol/L (6-16); Blood Urea Nitrogen 22 mg/dL (8-24); Bun/Creatinine Ratio 24.5 (12.0-20.0); CO2, Blood 21 mmol/L (21-32); Calcium, Blood 7.8 mg/dL (8.5-10.1); Chloride, Blood 116 mmol/L (98-108); Glomerular Filtration Rate >60 (60-); Glucose, Blood 112 mg/dL (70-99); Magnesium, Blood 2.2 mg/dL (1.6-2.4); Potassium, Blood 3.6 mmol/L (3.5-5.5); Sodium, Blood 143 mmol/L (136-145)
--- NOTE | 2021-01-08 05:57 | NUR ---
UPDATE DR ZUÑIGA CALLED REGARDING PT PHOS LAB OF 2.0 AND 150ML OF URINE OUTPUT THIS SHIFT. NEW ORDERS PROVIDED FOR 15MM OF K PHOS AND A 500ML NS BOLUS.
--- NOTE | 2021-01-08 06:27 | NUR ---
END OF SHIFT SUMMARY PT CONT TO BE INTUBATED WITH VENT SETTINGS AC 16, TV 450, PEEP 5, FIO2 30%; SMALL AMOUNT OF YELLOW SPUTUM SUCTIONED FROM ETT. PT REACTIVE TO PAINFUL STIMULI AND PERSONAL CARE; PT WILL START TO "CHEW" ON ETT; PROPOFOL INFUSING AT 25MCG/KG/MIN. AFEBRILE. HR 70-80'S; ONE 7 BEAT RUN OF SELF RESOLVING VT NOTED; PT APPEARS TO BE COMFORTABLE. SBP 100-140. PIVOT INFUSING VIA OG AT 35ML/HR (GOAL) WITH 30ML WATER FLUSHES Q4HR. RUIZ IN PLACE AND DRAINING LITTLE URINE TO GRAVITY; SEE PREVIOUS NOTE ABOUT NEW ORDERS ADDRESSING THIS. WILL REPORT TO AM RN WHEN AVAILABLE.
--- NOTE | 2021-01-08 07:10 | NUR ---
Receieved report from Carmen PAULINO. Patient is intubated an d sedated. He has 8.0 ET and is 26 cm at teeth and vent settings AC 16, TV 450, FiO2 30% and PEEP 5.0 with sats at 100%. He has OG in place and is infusing Pivot 1.5 at 35 with water flushes Q4 at 30ml. He has three IV's all dressings intact and sites WNL's. 18ga RFA with Propofol 25 mcg/kg/min and NS TKO, 18ga RAC SL and flushed, 18ga LFA NS at 75 ml/hr. He has 16Fr temp mcdermott draining to gravity and is afebrile. Patient responds to nocious stimuli. VSS See EMR.
--- NOTE | 2021-01-08 09:30 | NUR ---
No changes to vent settings or gtts. VSS, see EMR. is here awaiting wean to console spouse during process.
--- NOTE | 2021-01-08 10:15 | NUR ---
[facility] Care visit and case conf with nursing staff and re: plan of care for today. I confirmed with that code status requested by family is Full Code at this time. verbalized that she does not feel she can go against son's wishes. He did return my call last night after department gone for the day. I have left him another VM to discuss his dad and goals of care. I gave some advanced care planning reading, specifically re: CPR. Pt is starting to wake up with eyes opening, while I am in the room. Initially he looked comfortable but within 5 minutes started displaying nonverbal indicators of pain, grimacing, frowning. He is not making eye contact with me or his . in early to assist with calming pt as they begin weaning trials. She expresses fatigue and worry. She feels torn between her wishes for her and sons. She stated, "I know they are thinking of themselves but we live in their home and they are helping me take care of their dad". I offered support and encouragement for her own self care and rest.
--- NOTE | 2021-01-08 11:21 | NUR ---
Dr King in to speak with spouse. Propofol placed on standby at 1000. Patient arousing slowly. On spon. mode his rate was decreaseing as he was on it longer and Dr king placed back on AC. At 1100 Jo Ann RT tried again and same thing happened. He is currently back on original settings. at bedside. VSS See EMR.
--- NOTE | 2021-01-08 12:00 | NUR ---
Case conference with Dr Guan and pt's RN re: planning/coordinating a meeting with pt's family to discuss goals of care and current concerns. Return visit to spouse in room and t/c to sonMorales to arrange a family conference with Dr Guan today. Morales and plan to return to ICU around 2 pm and we set a meeting time for 2:30. router operator, pt's BLIND TEACHER notified and screeners contacted to allow additional family to return for family conference. Pt's RN to let Dr Bunch know about plans for meeting also.
--- NOTE | 2021-01-08 14:00 | NUR ---
Dr Bunch tried a 20 minute weaning trial and he did pretty well , but still did not fully awaken and was not able to follow commands. While on spon. mode his HR went as high as 156 and we gave IV metoprolol and worked well. He sats 90%. After 20 m inute trial period placed back on original settings and propofol at 25 mcg/kg/min was re-started. Vent settings are AC 16, TV 450, FiO2 30% PEEP 5.
--- NOTE | 2021-01-08 15:15 | NUR ---
Pt's -Shirley, son-Morales and DIL-Freida met with Dr Guan & me, as planned, to discuss pt's current status, code status, pt/family wishes. Time spent reviewing pt's life and preferences and answering family's questions. End result is that all three family members in agreement that pt would not want CPR and would not want to be reintubated if he is successfully extubated. He did not want a prolongation of life without quality of life. Son and ABHIJEET have assisted pt's with pt's care since moving parents up to [place] this winter. ABHIJEET is primary CG. Family is appropriately tearful with anticipatory grieving but agree after a couple of days of consideration that they want to honor pt's wishes and minimize suffering. We agreed to reevaluate plan of care daily with family expressing that they did not want pt left on ventilator more than several days to a week. Pt's has had a recent ER visit for heart issues and is expressing and exhibiting profound fatigue. She and family encouraged to go home and rest, get a good meal and return tomorrow. Pt's weaning trials were not sucessful today. Family aware that Drs will attempt again daily. Pt appeared to be resting comfortably on my last visit to ICU to update pt's RN on results of meeting. VO for DNR per Dr Guan entered in [employer].
--- NOTE | 2021-01-08 16:06 | NUR ---
No significant changes with patient. No vent or gtt changes. He remains on Propofol 25 mcg/kg/minand NS 75 ml/hr. Changed gown as he has been leaking around mcdermott. Family has gone home after meeting with Paliative care and making him a DNR. VSS, See EMR. He has been resting quietly sedated.
--- NOTE | 2021-01-08 18:05 | NUR ---
PATIENT RESTING WITH SEDATION, VENT SETTINGS AC 16, TV 450, FiO2 30%, PEEP 5.0 AND SATS >90%. PROPOFOL 25 MCG/KG/MIN, NS AT 75 ML/HR. GOING TYO START LASIX FOR POOR URINE OUTPUT. DR ZUÑIGA WAS IN ROOM FLLOWING UP. ORAL CARE AND POSITIONING DONE.
--- NOTE | 2021-01-08 20:34 | NUR ---
PATIENT REMAINS INTUBATED AND SEDATED WITH PROPOFOL 25 MCG, PATIENT GRIMACE WITH ORAL CARE AND REPOSITIONING. OCCASIONAL YAWN SEEN. VENT SET AT AC 16, TV 450, PEEP 5, FIO2 30%. OG IN PLACE WITH PIVIT 1.5 AT GOAL RATE OF 35 CC/HR. RUIZ DRAINING LARGE AMT OF CLEAR YELLOW URINE LEAKING AFTER LASIX GIVEN, PLAN TO CONTINUE TO MONITOR FOR CONTINUED LEAKING.
[2021-01-09 03:32] LABS: BASOPHILS ABSOLUTE AUTO 0.03 K/mm3 (0.00-0.23); BASOPHILS PERCENT AUTO 0 % (0-2); EOSINOPHILS ABSOLUTE AUTO 0.11 K/mm3 (0.00-0.68); EOSINOPHILS PERCENT AUTO 2 % (0-6); Hematocrit 39.9 % (37.0-53.0); Hemoglobin 13.6 g/dL (13.5-17.5); IMMATURE GRAN ABSOLUTE AUTO 0.03 K/mm3 (0.00-0.10); IMMATURE GRAN PERCENT AUTO 0 % (0-1); LYMPHOCYTES ABSOLUTE AUTO 1.19 K/mm3 (0.84-5.20); LYMPHOCYTES PERCENT AUTO 16 % (21-46); MONOCYTES ABSOLUTE AUTO 0.77 K/mm3 (0.16-1.47); MONOCYTES PERCENT AUTO 10 % (4-13); Mean Corpuscular HGB 31.9 pg (26.0-34.0); Mean Corpuscular HGB Conc 34.1 g/dL (31.5-36.5); Mean Corpuscular Volume 93 fL (80-100); Mean Platelet Volume 12.1 fL (9.1-12.4); NEUTROPHILS ABSOLUTE AUTO 5.36 K/mm3 (1.96-9.15); NEUTROPHILS PERCENT AUTO 72 % (41-73); Platelet Count 118 K/mm3 (150-400); RDW Coefficient Variation 13.5 % (11.7-14.2); RDW Standard Deviation 46.2 fL (35.1-46.3); Red Blood Cell Count 4.27 M/mm3 (4.30-5.90); White Blood Cell Count 7.49 K/mm3 (4.00-11.30)
[2021-01-09 03:48] LABS: Anion Gap 4 mmol/L (6-16); Blood Urea Nitrogen 21 mg/dL (8-24); Bun/Creatinine Ratio 23.4 (12.0-20.0); CO2, Blood 23 mmol/L (21-32); Calcium, Blood 7.6 mg/dL (8.5-10.1); Chloride, Blood 117 mmol/L (98-108); Glomerular Filtration Rate >60 (60-); Glucose, Blood 118 mg/dL (70-99); Magnesium, Blood 2.1 mg/dL (1.6-2.4); Phosphorus, Blood 2.5 mg/dL (2.5-4.9); Potassium, Blood 3.6 mmol/L (3.5-5.5); Sodium, Blood 144 mmol/L (136-145)
--- NOTE | 2021-01-09 05:58 | NUR ---
SUMMARY PATIENT REMAINS INTUBATED AND SEDATED WITH PROPOFOL DOWN TO 20 MCG, PATIENT CONTINUES TO BE RELAXED GRIMACING WITH ORAL CARE AND REPOSITIONING. VENT SET AT AC 16, TV 450, PEEP 5, FIO2 30% SUCTIONING SMALL AMT OF WHITE SPUTUM VIA ETT AND LARGE AMT OF CLEAR ORAL SECRETIONS. OG REMAINS IN PLACE WITH PIVIT 1.5 AT GOAL RATE OF 35 CC/HR WITH MIN RESIDUALS. PATIENT HAD GOOD URINE OUTPUT AFTER IV LASIX NO FURTHER LEAKING SEEN FROM RUIZ.
--- NOTE | 2021-01-09 06:57 | NUR ---
Received report from Priscila PAULINO. Patient is intubated and sedated and resting currently. Vent settings are AC 16, TV 450, FiO2 30%, and PEEP 5.0 with sats 98%. He is a-fib/ paced 70-80's. He has OG in place with pivot 1.5 at 35 ml/hr and q4 30 ml water flushes. He has 16Fr temp mcdermott draining to gravity light ailin colored urine. His LE's elevated and has padded dresssings to heels and toe. called and stated she would be in around 0930 for weaning. He has two 18ga IV's in right arm. 18ga RAC infusing NS TKO and 18ga RW infusing Propofol 20 mcg/kg/min. Oral care and positioning done.
--- NOTE | 2021-01-09 07:15 | NUR ---
Received report from Priscila PAULINO. Patient sleeping at start of shift and awakens easily to verbal stimuli. She is unable to speak words and moans alot, and is not able to follow commands. She does allow oral care and tehn fell back to sleep. She sats 99% on RA. VSS, See EMR. She has 16Fr mcdermott draining to gravity clear yellow urine. She has 20ga IV to LW and is infusing D5 1/2 at 100ml/hr ml/hr. She is able to move herself in bed and sit up when she wants. MAEW but weak. She is on her menstural cycle.
--- NOTE | 2021-01-09 09:25 | NUR ---
Changed linen as he continues to leak around mcdermott, repositioned . No changes to vent or gtt's. VSS See EMR. No order to wean this am yet awaiting media operator to see plan for today.
--- NOTE | 2021-01-09 09:30 | NUR ---
Pal Care Visit Brief visit. Pt remains intubated, sedated. Plan for lightening sedation, waking up more and weaning trial again today. No family in to visit yet but plan is for them to be here later this am. Spoke with RN re current status. No major changes and plan of care remains unchanged. Pt has some nonverbal indicators of discomfort noted in facial grimacing and frowning.
--- NOTE | 2021-01-09 11:24 | NUR ---
Dr Bunch by to see patient and has had me place Propofol on standby to awaken patient. Called with update and she is on her way in. He remains on same settings until more awake. VSS, See EMR. Lasix seems to be working as mcdermott bag has 800 mls in it and is clear yelllow urine.
--- NOTE | 2021-01-09 13:30 | NUR ---
Patient weaning trial breif as he wa not takeing good breaths. Dr Bunch made vent changes and are currently AC 10, TV 450 FiO2 21% and PEEP 5.0 and sats >90%. Family at bedside and have spoke with Dr Bunch for updates.
--- NOTE | 2021-01-09 13:47 | NUR ---
Pal Care visit note: Returned to pt's room while and CELINE in room. Supportive visit made and listened to sisters life and family sharing. struggling with watching pt struggle through weaning trials. Dr Bunch rounded and updated and celine at bedside. Second weaning trial to be attempted this afternoon. states she doesn't want trials and cont. intubation "to go on too long". We reviewed plan to give pt a number of days. Yesterday in family conference, Son and family were clear that they did not want prolonged trials or to consider ferry terminal supervisor ventilatory support via trach. Drs are aware of family's wishes. RT had asked about ferry terminal supervisor life support/trach and this was sl upsetting to the . Pal Care to remain available for support.
--- NOTE | 2021-01-09 15:30 | NUR ---
Weaning process continues with spon. mode 8/5 and he is tolerating well. VSS, See EMR. and sister at bedside for comfort. Stopped tube feed incase extubation.
--- NOTE | 2021-01-09 17:53 | NUR ---
he was going to be extubated and as RT went in room he started A-Fib RVR as high as [address] Bunch decided to wait until tomorrow. He is now back on 20 mcg/kg/min Propofol, NS TKO and TF of Pivot 1.5 has been restarted at 35 ml/hr. He is resting quietly. Vent setting 10/450/21/5 and sats >90%
--- NOTE | 2021-01-09 18:20 | NUR ---
Spiritual care note: Provided prayer and encouragement to spouse and CELINE. Pt was vented and non-responsive. Family tearful, but appropriate. They expressed appreciation for prayer/peer financial counselor. I will remain available.
[2021-01-10 03:48] LABS: Magnesium, Blood 2.2 mg/dL (1.6-2.4); Phosphorus, Blood 2.7 mg/dL (2.5-4.9)
--- NOTE | 2021-01-10 04:36 | NUR ---
SHIFT SUMMARY PATIENT HAS SLEPT WELL THRU NIGHT. PER DR YOGESH PEREZ NOT PERFORMING SBT THIS AM, WILL TURN OFF SEDATION AROUND 5 AM WITH PLAN TO EXTUBATE EARLY IN MORNING IF PT. IS AWAKE. PT LOCALIZES PAIN, NOT FOLLOWING DIRECTIONS. GRIMACES TO ALL CARE PROVIDED. FREQUENT ORAL SUCTIONING. PT MOSTLY IN ATRIAL FIBRILATION, SOME PACED BEATS. BP STABLE. TOLERATING TUBE FEEDING. ONE BOWEL MOVEMENT SO FAR. DIMINISHED URINE OUTPUT. ASSESSMENT IS CHARTED. VSS. WILL CONTINUE TO MONITOR.
--- NOTE | 2021-01-10 08:07 | NUR ---
ASSUMED CARE BEDSIDE REPORT RECIEVED. PT IS LAYING IN BED INTUBATED, NOT SEDATED. PROPOFOL ON STANDBY AT THIS TIME. PT IS CALM AND APPEARS COMFORTABLE. PT WITH EYES OPEN, NOT TRACKING. PT DOES NOT FOLLOW ANY COMMANDS. WITHDRAWS ALL EXTREMITIES TO NOXIOUS STIMULI. COUGH AND GAG PRESENT WITH SUCTION. VENT SETTING AC 10, TV 450, PEEP 5, FIO2 21%. PT RR 10, PT DOES NOT OVER BREATH THE VENT. NS INFUSING TKO. OGT IN PLACE WITH TF AT GOAL RATE. RUIZ IN PLACE WITH DARK YELLOW URINE OUTPUT NOTED. SBW RESTRAINTS IN PLACE. NO SEIZURE LIKE ACTIVITY NOTED. WILL CONTINUE TO MONITOR.
[2021-01-10 10:17] LABS: PCO2 Arterial 36.1 mmHg (35-45); PO2 Arterial 89.9 mmHg (80-100); pH Blood Arterial 7.43 (7.35-7.45)
--- NOTE | 2021-01-10 11:08 | NUR ---
EXTUBATION PT DOING WELL WITH NO SEDATION AND ON PRESSURE SUPPORT. DR ZUÑIGA AT BESIDE. ORDERS TO EXTUBATE. PT FAMILY AT BEDSIDE. PT EXTUBATED AT 1100 BY RT DHILLON. PT PLACED ON 3L O2 NC. PT WITH WEAK COUGH. SPO2 >94%. WILL CONTINUE TO MONITOR.
--- NOTE | 2021-01-10 14:11 | NUR ---
Spoke with Primary RN Cb and discussed case. Pt extubated today and is slow to clear. Pt resting in bed with his eyes opened and does not appear to respond to verbal stimuli. Mild to moderate secretions noted. Pt's spouse Shirley at bedside. Engaged in therapeutic listening and answered questions. Gentle education given on planning for the future pending hospital course. Listened as Shirley reports Pt being on hospice services in the past due to his dementia and strokes. Pt stabalized and graduated off hospice services. Shirley reports adequate support at home. She states living with her children who are supportive of Pt's care needs. Continued therapeutic listening. Shirley expresses appreciation of visit. Palliative Care will remain available.
--- NOTE | 2021-01-10 16:58 | NUR ---
SHIFT SUMMARY PT DOING WELL THIS AFTERNOON. PT HAS REMAINED ON 2L O2 NC S/P EXTUBATION. VITAL SIGNS HAVE REMAINED STABLE. PT WITH COPIOUS ORAL SECRETIONS THAT PT IS UNABLE TO CLEAR INDEPENDENTLY. PT REQUIRES DEEP ORAL SUCTION TO CLEAR SECRETIONS. IV'S SALINE LOCKED. RUIZ REMAINS IN PLACE WITH YELLOW URINE OUTPUT NOTED. PT WITH EYES OPEN AND TRACKING FAMILY IN ROOM, BUT DOES NOT FOLLOW COMMANDS. PT SPOUSE AND FAMILY MEMBERS AT BEDSIDE FOR MOST OF THE SHIFT. WILL CONTINUE TO MONITOR AND REPORT OFF TO ONCOMING RN.
[2021-01-10 19:21] LABS: Vancomycin, Trough 10.6 ug/mL (5.0-10.0)
--- NOTE | 2021-01-10 19:59 | NUR ---
ASSUMED CARE OF PT AT 1915. REPORT RECEIVED AT BEDSIDE. PT PRESENTS IN BED. TRACKS WITH HIS EYES. DOES NOT ACKNOWLEDGE COMMANDS. 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 DOES HAVE VERY MOIST COUGH THAT IS CLEARED SOMEWHAT WITH YAUNKEUR SUCTIONING. DEEPER ORAL SUCTIONING ELICITS MILD GAG. PT IS UNABLE TO SELF CLEAR SECRETIONS. SPOKE WITH DR ZUÑIGA CONCERNING BLOOD PRESSURES AND PT BEING UNSAFE FOR SWALL OF HIS MEDICATIONS. ORDER RECEIVED FOR DOBHOFF. THIS PLACED WITH MODERATE EFFORTS WITH THE ASSIST OF JEFFERSON WHITE. PENDING CHEST XRAY VERIFICATION. WILL REVIEW CHART AND PLAN OF CARE FOR THIS PT.
--- NOTE | 2021-01-10 21:29 | NUR ---
DR ZUÑIGA VIEW XRAY AND VERIFIES DOBHOFF POSITION. HAVE GIVEN PT HS METOPROLOL THROUGH TUBE. NO ISSUES TO NOTE. PT'S CALLS TO CHECK ON HER . UPDATE GIVEN. DID INFORM HER THAT THE DOBHOFF WAS PLACED SO HE COULD GET HIS MEDICATIONS. SHE VOICES UNDERSTNADING. NO SEIZURE-TYPE ACTIVITIES NOTED. WILL CONTINUE TO MONITOR PT.
--- NOTE | 2021-01-10 22:31 | NUR ---
HAVE PLACED PT TO ROOM AIR. PT MAINTAINS > 95 PERCENT. USE OF 14 BHUTANESE SUCTION CATHETER TO DEEP ORAL SUCTION PT AFFECTIVE TO CLEAR SECRETIONS FROM AIRWAY. PT TOLERATES THIS RATHER WELL. WILL CONTINUE TO MONITOR PT.
--- NOTE | 2021-01-10 23:12 | NUR ---
MEDICATED PT WITH 10 MG HYDRALAZINE IV FOR HYPERTENSION. PENDING RESULTS.
[2021-01-11 03:24] LABS: Base Excess Venous -1.1 mmol/L; Bicarbonate Venous 23.9 mmol/L (24.0-30.0); PCO2 Venous 33.5 mmHg (38-42); PO2 Venous 54.5 mmHg (38-42); pH Blood Venous 7.44 (7.34-7.37)
[2021-01-11 03:29] LABS: BASOPHILS ABSOLUTE AUTO 0.06 K/mm3 (0.00-0.23); BASOPHILS PERCENT AUTO 1 % (0-2); EOSINOPHILS ABSOLUTE AUTO 0.12 K/mm3 (0.00-0.68); EOSINOPHILS PERCENT AUTO 1 % (0-6); Hematocrit 49.5 % (37.0-53.0); Hemoglobin 16.8 g/dL (13.5-17.5); IMMATURE GRAN ABSOLUTE AUTO 0.04 K/mm3 (0.00-0.10); IMMATURE GRAN PERCENT AUTO 0 % (0-1); LYMPHOCYTES ABSOLUTE AUTO 0.91 K/mm3 (0.84-5.20); LYMPHOCYTES PERCENT AUTO 9 % (21-46); MONOCYTES ABSOLUTE AUTO 0.73 K/mm3 (0.16-1.47); MONOCYTES PERCENT AUTO 7 % (4-13); Mean Corpuscular HGB 32.3 pg (26.0-34.0); Mean Corpuscular HGB Conc 33.9 g/dL (31.5-36.5); Mean Corpuscular Volume 95 fL (80-100); NEUTROPHILS ABSOLUTE AUTO 7.98 K/mm3 (1.96-9.15); NEUTROPHILS PERCENT AUTO 81 % (41-73); Platelet Count 134 K/mm3 (150-400); RDW Coefficient Variation 13.2 % (11.7-14.2); White Blood Cell Count 9.84 K/mm3 (4.00-11.30)
[2021-01-11 03:43] LABS: Anion Gap 6 mmol/L (6-16); Blood Urea Nitrogen 21 mg/dL (8-24); Bun/Creatinine Ratio 24.6 (12.0-20.0); CO2, Blood 24 mmol/L (21-32); Calcium, Blood 8.4 mg/dL (8.5-10.1); Chloride, Blood 112 mmol/L (98-108); Creatinine, Blood 0.85 mg/dL (0.60-1.20); Glomerular Filtration Rate >60 (60-); Glucose, Blood 112 mg/dL (70-99); Magnesium, Blood 2.2 mg/dL (1.6-2.4); Phosphorus, Blood 2.6 mg/dL (2.5-4.9); Potassium, Blood 3.9 mmol/L (3.5-5.5); Sodium, Blood 142 mmol/L (136-145)
--- NOTE | 2021-01-11 06:29 | NUR ---
PT HAS MAINTAINED THROUGHOUT THE NIGHT ON ROOM AIR. SATRUATIONS IN UPPER 90'S PERCENT. AFTER DEEP ORAL SUCTIONING WITH 14 YAKUT SUCTION CATHETER PT HAS HAD LESS UPPER AIRWAY CONGESTION. PT HAS NOT BEEN VERBAL. DOES MAKE EYE CONTACT WHEN ADDRESSED. WILL CONTINUE TO MONITOR PT, AND WILL REPORT OFF TO ONCOMING RN.
--- NOTE | 2021-01-11 10:23 | NUR ---
Care Assumed 0700 Pt able to track with eyes but unable to follow commands. Moves left arm occasionally but no movement noted in lower extrems and right arm. On 1 L via NC to keep SPO2 > 90%. Dobhoff in place for meds. AFIB, VSS. Oral suction with thick white secreations. Weak gag present. Speak speech at bedside but unable to complete due to pt not followign directions. Dr. Guan in to see patient, status changed to medical floor. Charge nurse made aware.
--- NOTE | 2021-01-11 12:52 | NUR ---
Joint family meeting this AM with Dr Guan. Dr Guan provides update and discussed options including option for comfort care and hospice. Dr Guan answers questions and therapeutic listening offered. After questions answered and further discussion, family has elected comfort care for Pt with the goal of continued antibiotics, IV medications, and evaluation from ST over the next couple of days. If no improvement then family would like Pt to come home with hospice services. Family reports having [facility] in the past and would like to continue their services. Family expresses appreciation and report no other concerns at this time. Placed comfort care order, and comfort care order set per V/O from Dr Guan. Spoke with Bedside RN Jose and discussed case. Escorted family to Pt's room. Pt resting in bed with his eyes closed. No S/S of distress noted at this time. Palliative Care will remain available.
--- NOTE | 2021-01-11 13:33 | NUR ---
Comfort Care Pt transitioned to comfort care per family. Dr. Guan and Tylor, pallative care in to see patient and , daught, and pts son-in-law. Per daughter pt apepars to be having throat pain. Treated per emar. Pt Dobhoff removed. Call questions answered and updated on pt current pt care.
--- NOTE | 2021-01-11 15:45 | NUR ---
Shift Summary/Transfer to medical floor Report called to 313 Nurse, Emmy Gray. All questions answered and updated on current code status. Will transfer via bed to room. Pts remains at bedside. states pt does not appear to be in pain after inital medication for "throat pain" per family request. Pt unable to follow commands but tracks with eyes. Occaional cough with secreations, frequent suction/oral care provided.
--- NOTE | 2021-01-11 16:06 | NUR ---
1603 - TRANFER TO MEDICAL FLOOR Pt to medical floor via bed accomplined by . All questions answered and all of patients belongs sent.
--- NOTE | 2021-01-11 18:16 | NUR ---
SHIFT SUMMARY PT IS A COMFORT CARE PT WHO CAME IN FROM ICU; WHO WAS ADMITTED FOR SEIZURE ACTIVITY AND AFIB WITH RVR; PT STILL RECEIVING COMFORT MEASURES PER DR; STATED KEEP THE VITALS AND ABX. PT ALSO MEDICATION FOR HTN PRN. PT UNRESPONSIVE; AT BEDSIDE. PT NPO AND WILL HAVE SWALLOW TX BRAD PER . PT COMFORTABLE DURNG THIS SHIFT. BED IS IN THE LOWEST POSITION AND CALL LIGHT WITHIN REACH
--- NOTE | 2021-01-12 06:21 | NUR ---
SHIFT SUMMARY PATIENT DID NOT WAKE UP FROM SLEEPING OVERNIGHT. HE SHOWED NO SIGNS OF PAIN OR DISCOMFORT. IVS PATENT AND FLUSHED. BED IN LOWEST POSITION WITH WHEELS LOCKED AND ALARM ON. CALL LIGHT WITHIN REACH. REPORT GIVEN TO ONCOMING RN.
[2021-01-12 08:07] LABS: Vancomycin, Trough 17.9 ug/mL (5.0-10.0)
--- NOTE | 2021-01-12 15:58 | NUR ---
PT WITHOUT S/SX OF DISCOMFORT OR DISTRESS. OPENS EYES WITH PHYSICAL STIMULATION AT TIMES, TRACKS BUT DOES NOT RESPOND VERBALLY OR APPROPRIATELY. PRESENT AT APPROXIMATELY 1330, QUESTIONS ANSWERED, SHE AGREES WITH PLAN OF CARE. PT'S SISTER IN LAW HAS ARRIVED AT THIS TIME, BOTH VISITORS ARE VERY PLEASANT AND APPROPRIATE. 1530 PT APPEARS FLUSHED AND WARM TO THE TOUCH, BEDSIDE FAN GIVEN.
--- NOTE | 2021-01-12 18:35 | NUR ---
pt comfortable will continue to follow for plan of care.
--- NOTE | 2021-01-13 05:56 | NUR ---
SHIFT SUMMARY PATIENT CONTINUES TO BE UNRESPONSIVE AND WILL ONLY OCCIASIONALLY OPEN HIS EYES. UNABLE TO TRACK MOVEMENTS. IV PATENT AND FLUSHED. BED IN LOWEST POSITION WITH WHEELS LOCKED AND ALARM ON. CALL LIGHT WTIHIN REACH. REPORT GIVEN TO ONCOMING RN.
--- NOTE | 2021-01-13 12:30 | NUR ---
Pal Care Comfort care visit made to pt/, who are very familiar to me from working with them last week. Pt now on comfort care after extubation. He does not appear to have wakeful time and confirms he will open his eyes rarely and sleeping the rest of the time. He appears comfortable. CDC ASSOCIATE in to change position and provide personal care. Pt did not groan or grimace or appear painful or distressed with change of position. Time spent with , listening to her life review. Another family member, a niece yesterday and she is trying to help her sister deal with that also. Byron spoke of her way of dealing with grief and not always able to cry even if she is deeply affected. I supported and encouraged her to do what felt best to care for herself. She is anticipating d/c home tomorrow for her with hospice care arranged. There is equipment needed in the home, including hospital bed. Will alert CM to d/c planning needs in am. Spoke with RN after my visit. He is not aware of any plans or DME arrangements being made already.
--- NOTE | 2021-01-13 18:13 | NUR ---
SHIFT SUMMARY. PT IS STILL SOMULENT, OPENS EYES PERIDICALLY AND APPEARS TO TRACE BUT IS OTHERWISE NON RESPONSIVE. NO S/SX OF DISTRESS OR DISCOMFORT. PT WARM TO TOUCH, MANAGED WELL WITH FAN AND REMOVING BLANKET AND LEAVING SHEET ON. URINE OUTPUT CONTINUES TO DECREASE AND IS VERY DARK BERTO. AT BEDSIDE. SHE HAS REQUESTED THAT HOSPICE REFERAL BE PLACED HERSELF AND CHILDREN WOULD LIKE TO ATTEMPT TO TAKE PT HOME, PALLIATIVE CARE AND MD AWARE. NO OTHER CHANGES OR CONCERNS.
--- NOTE | 2021-01-14 06:29 | NUR ---
SHIFT SUMMARY PATIENT WOULD WAKE UP OCCASIONALLY OVERNIGHT, ABLE TO TRACK WITH EYES AND RESPOND MINIMALLY WITH FACIAL EXPRESSIONS. DID NOT SHOW ANY INDICATIONS OF BEING IN PAIN OR HAVING DIFFICULTY BREATHING. IV PATENT AND FLUSHED. BED IN LOWEST POSITION WITH WHEELS LOCKED AND ALARM ON. CALL LIGHT WITHIN REACH. REPORT GIVEN TO ONCOMING RN.
--- NOTE | 2021-01-14 12:28 | NUR ---
Pal Care comfort care visit - Supportive visit made to and case conf with CM and [facility] earlier this am. Pt had just had a bed bath. Lying on right side with HOB elevated. Secretions faintly heard in upper airway with shallow regular respirations. No nonverbal indicator of pain or distress noted. Pt's skin is warm and dry. appears fatigued and expressess gratitude for d/c home with hospice today. She has been staying with pt 23/02 and states she wouldn't have it any other way but is looking forward to being home and being in her own bed. DME being set up, per her conversation with [facility]. She requests all further arrangements be made with [facility]. This was passed on to [facility] also.
--- NOTE | 2021-01-14 17:42 | NUR ---
SHIFT SUMMARY PT ON COMFORT CARE. CC ASSESSMENTS Q2 HOURS. FAMILY IN ROOM T/O THE DAY. DENIED ANY NEEDS FOR PATIENT OR FAMILY. PER ALIGNMENT TECHNICIAN, PLANS TO DC TOMORROW ON HOSPICE WITH [facility]. DAUGHTER CHRYSTAL, AND AZAEL UPDATED ON PLAN OF CARE. IV INFILTRATED AND FAMILY DECIDED TO DC ABX AND KEPPRA INSTEAD OF GET NEW IV. DR MINI MCKENZIE'D ORDER FOR NO IV ACCESS. PT CURRENTLY RESTING IN BED WITH AT BEDSIDE. DENIES ANY NEEDS AT THIS TIME.
--- NOTE | 2021-01-15 04:42 | NUR ---
SUMMARY: PT REMAINS ON COMFORT MEASURES. HE OPENS EYES SPONTANEOUSLY BUT IS NONVERBAL AND MOSTLY NONRESPONSIVE. PT HAS MOIST COUGH THAT HAS BECOME WEAKER W/MORE DIFFICULTY CLEARING SECRETIONS SO ATROPINE GTTS WERE COMMENCED. RESPS ARE SHALLOW AND TACHY AT TIMES W/PRN ROXINOL RECIEVED FOR AIR HUNGER. TURN SCHEDULE MAINTAINED, RUIZ IS PATENT/DRAINING AND MOUTH CARE PROVIDED. REMAINS AT BEDSIDE W/THERAPEUTIC SUPPORT GIVEN. NO ACUTE CHANGES. WCTM AND REPORT TO DAY RN.
[2021-01-15] MEDS ORDERED: ATROPINE SULFATE2 M5 SL (08:28)
[2021-01-15] MEDS ORDERED: BISA10S PR (08:29)
[2021-01-15] MEDS ORDERED: TRANSDERM-SCOP1 EAC5 TD (08:31)
[2021-01-15] MEDS ORDERED: MORPHINE CONCENTRATE SL (08:31)
--- NOTE | 2021-01-15 08:40 | NUR ---
Pal Care comfort care visit - Brief visit as pt is being readied for transfer home and admission to hospice care per [facility] later today. Increased secretions noted in airway. Medications had been started for that already. Pt unresponsive but appears comfortable.
--- NOTE | 2021-01-15 12:16 | NUR ---
RN SHIFT REPORT- PT RESTING QUIET WITH EYES CLOSED. RESP EVEN UNLABORED. PRESENT IN THE ROOM AND SLEEPING ON THE BENCH CURRENTLY.
--- NOTE | 2021-01-15 12:18 | NUR ---
TRANSPORT HERE TO DC PT HOME, TX BED TO [place] SLIDE TX- RUIZ REMAINS INTACT. MEDICATED PT WITH ROXANOL BEFORE MOVE. PT OPENED EYES UPON TX., RATTLEY MOIST COUGH, SUCTIONED MOD AMOUNT SECRETIONS DEEP THROAT WITH YANKAUR. GAVE DC INSTRUCTIONS TO INCLUDING 2 HARD SCRIPTS FOR ATIVAN AND ROXANOL. BELONGINGS SENT HOME WITH PT'S .
== END 2021-01-15 08:50 | disposition hospice, home (50) | DRG 100 ==
LOC: ER 17:19 → ICUW 17:20 → MEDS 01-11 16:05
PROVIDERS: Emergency Medicine; Internal Medicine Critical Care Medicine; ADMIT Internal Medicine
PROC: 0BH17EZ Insertion of Endotracheal Airway into Trachea, Via Natural or Artificial Opening (ICD-10-PCS; principal; 2021-01-06)
PROC: 5A1955Z Respiratory Ventilation, Greater than 96 Consecutive Hours (ICD-10-PCS; 2021-01-06)
DX: G40.409 Other generalized epilepsy and epileptic syndromes, not intractable, without status epilepticus (principal); J96.01 Acute respiratory failure with hypoxia; J69.0 Pneumonitis due to inhalation of food and vomit; N39.0 Urinary tract infection, site not specified; Z66 Do not resuscitate; Z51.5 Encounter for palliative care; I48.0 Paroxysmal atrial fibrillation; G30.9 Alzheimer's disease, unspecified; I10 Essential (primary) hypertension; B95.2 Enterococcus as the cause of diseases classified elsewhere; I65.21 Occlusion and stenosis of right carotid artery; F02.80 Dementia in other diseases classified elsewhere, unspecified severity, without behavioral disturbance, psychotic disturbance, mood disturbance, and anxiety; I48.91 Unspecified atrial fibrillation; Z86.73 Personal history of transient ischemic attack (TIA), and cerebral infarction without residual deficits; Z79.82 Long term (current) use of aspirin; Z79.899 Other long term (current) drug therapy; Z87.440 Personal history of urinary (tract) infections; Z95.0 Presence of cardiac pacemaker; Z90.79 Acquired absence of other genital organ(s)
CPT/HCPCS: 31500; 36415; 36600; 51702; 70450; 70496; 70498; 71045; 80048; 80053; 80202; 81001; 82140; 82803; 82947; 83605; 83735; 84100; 85025; 85610; 85730; 87077; 87086; 87186; 92526; 92610; 93005; 93010; 94002; 94003; 94667; 95819; 96365-59; 96366-59; 96368; 96375-59; 96376-59; 99291-25; A9270; G0378; G0480; J0290; J0330; J0360; J0696; J1630; J1650; J1940; J1953; J2250; J2704; J3010; J3370; J7030; J7040; J7050; J7060; Q9967